=== PATIENT | female | born 1965 | race Caucasian/White ===

== ENCOUNTER → 2021-08-27 | Outpatient (CLI) | payer BC ==
[2021-08-27 09:57] LABS: BASO # 0.1 10^3/uL (0.0-0.2); BASO % 1.7 % (0.0-1.0); EOS # 0.3 10^3/uL (0.0-0.5); EOS % 3.6 % (0.0-3.0); HEMATOCRIT 40.9 % (36.0-47.0); HEMOGLOBIN 13.4 g/dl (12.0-15.5); LYMPH # 2.7 10^3/uL (1.5-5.0); LYMPH % 32.2 % (24.0-44.0); MEAN CORPUSCULAR HEMOGLOBIN 29.7 pg (27.0-33.0); MEAN CORPUSCULAR HGB CONC 32.8 g/dl (32.0-36.5); MEAN CORPUSCULAR VOLUME 90.7 fl (80.0-96.0); MONO # 0.8 10^3/uL (0.0-0.8); MONO % 8.9 % (2.0-8.0); NEUTROPHILS # 4.5 10^3/uL (1.5-8.5); NEUTROPHILS % 53.4 % (36.0-66.0); PLATELET COUNT, AUTOMATED 269 10^3/uL (150-450); RED BLOOD COUNT 4.51 10^6/uL (4.00-5.40); WHITE BLOOD COUNT 8.4 10^3/uL (4.0-10.0)
[2021-08-27 10:21] LABS: ALBUMIN 3.7 GM/DL (3.2-5.2); ALT/SGPT 18 U/L (12-78); BILIRUBIN,TOTAL 0.3 MG/DL (0.2-1.0); BLOOD UREA NITROGEN 13 MG/DL (7-18); CALCIUM LEVEL 9.2 MG/DL (8.5-10.1); CARBON DIOXIDE LEVEL 32 MEQ/L (21-32); CHLORIDE LEVEL 108 MEQ/L (98-107); CHOLESTEROL LEVEL 233 MG/DL (<200); CREATININE FOR GFR 0.67 MG/DL (0.55-1.30); GLOMERULAR FILTRATION RATE > 60.0 (>51); GLUCOSE, FASTING 85 MG/DL (70-100); HDL CHOLESTEROL 64 MG/DL (>40); LDL CHOLESTEROL 149 MG/DL (<100); NON-HDL-C 169 MG/DL; POTASSIUM SERUM 4.9 MEQ/L (3.5-5.1); SODIUM LEVEL 143 MEQ/L (136-145); TOTAL PROTEIN 6.9 GM/DL (6.4-8.2); TRIGLYCERIDES LEVEL 98 MG/DL (<150)
== END ==
LOC: M LAB 08:39
PROVIDERS: ATTEND Nurse Practitioner Family
DX: Z00.00 Encounter for general adult medical examination without abnormal findings (principal)

== ENCOUNTER → 2021-11-20 | Outpatient (CLI) | payer BC | LOC: M LABSMTC 11:13 | PROVIDERS: ATTEND Anesthesiology | DX: Z01.818 Encounter for other preprocedural examination (principal); Z11.52 Encounter for screening for COVID-19 ==

== ENCOUNTER 2021-11-24 10:39 | Day surgery (SDC) | payer BC ==
[~2021-11-24] VITALS: Ht 162.6 cm; Wt 49.8 kg
[~2021-11-24 10:39] MED LIST: NS 1,000 ML IV ONE
[2021-11-24] MEDS ORDERED: OXYC-517 PO (10:59)
[2021-11-24] MEDS ORDERED: fentaNYL 100 MCG/2 ML INJECTION As Ordered ONE (11:22)
[2021-11-24] MEDS ORDERED: propofoL 200 MG/20 ML VIAL As Ordered ONE (11:37)
[2021-11-24] MEDS ORDERED: EMLA CREAM 5GM TUBE (LIDOCAINE/PRILOCAINE) TOP ONE (13:00)
[2021-11-24] MEDS ORDERED: KETOROLAC 30 MG/ML 1ML VIAL IV ONE (13:00)
[2021-11-24 13:35] VITALS: BP 150/80
== END 2021-11-24 13:38 | disposition home or self-care (01) ==
LOC: M OPP 10:39
PROVIDERS: ATTEND Surgery
DX: K62.4 Stenosis of anus and rectum (principal); C21.0 Malignant neoplasm of anus, unspecified; R19.4 Change in bowel habit; K62.5 Hemorrhage of anus and rectum; K21.00 Gastro-esophageal reflux disease with esophagitis, without bleeding; K31.89 Other diseases of stomach and duodenum; R10.13 Epigastric pain; Z91.013 Allergy to seafood
CPT/HCPCS: 43239; 45380; 88305; J1885; J3010

== ENCOUNTER → 2021-12-13 | Outpatient (CLI) | payer BC ==
[~2021-12-13] MED LIST changes: -NS 1,000 ML IV ONE; +OXYC-517 PO
== END ==
LOC: M ONCR 15:08
PROVIDERS: ATTEND General Practice
DX: C21.0 Malignant neoplasm of anus, unspecified (principal); Z87.891 Personal history of nicotine dependence; Z91.013 Allergy to seafood; Z79.891 Long term (current) use of opiate analgesic

== ENCOUNTER 2021-12-20 13:54 | Outpatient (RCR) | payer BC | END 2021-12-25 | LOC: M ONCR 13:54 | PROVIDERS: ATTEND General Practice | DX: C21.0 Malignant neoplasm of anus, unspecified (principal) ==

== ENCOUNTER 2021-12-26 11:04 | Outpatient (RCR) | payer BC ==
[2021-12-27] MEDS ORDERED: OXYC-517 PO (11:05)
[2022-01-02] MEDS ORDERED: CVS50CAP PO (11:23)
[2022-01-17] MEDS ORDERED: OXYC-517 PO ×2 (16:02→18:44)
== END 2022-01-25 ==
LOC: M ONCR 11:04
PROVIDERS: ATTEND General Practice
DX: C21.0 Malignant neoplasm of anus, unspecified (principal)

== ENCOUNTER → 2022-01-12 | Outpatient (CLI) | payer BC ==
[~2022-01-12] MED LIST changes: +CVS50CAP PO; +LIDOCAINE 1% MDV 20ML VIAL As Ordered ONE; +MIDAZOLAM INJ 2MG/2ML VIAL (J2250 PER 1MG) As Ordered ONE; +NS 1,000 ML IV SCH; +ceFAZolin 2 GM/D5W 50 ML IV BAG (J0690 PER 500MG) As Ordered ONE; +ceFAZolin SOD 2 GM in IV 1 EA IV ONE; +diphenhydrAMINE 50MG/ML VIAL (J1200) As Ordered ONE; +fentaNYL 100 MCG/2 ML INJECTION As Ordered ONE
[2022-01-12 16:52] VITALS: BP 119/67
== END ==
LOC: M IRPRO 13:09
PROVIDERS: ATTEND Specialist
DX: C21.0 Malignant neoplasm of anus, unspecified (principal)
CPT/HCPCS: 36561; 99152; 99153; C1769; C1788; C1894; J0690; J1200; J1642; J1644; J2250; J3010

== ENCOUNTER → 2022-01-16 | Outpatient (CLI) | payer BC ==
[~2022-01-16] MED LIST changes: -LIDOCAINE 1% MDV 20ML VIAL As Ordered ONE; -MIDAZOLAM INJ 2MG/2ML VIAL (J2250 PER 1MG) As Ordered ONE; -NS 1,000 ML IV SCH; -ceFAZolin 2 GM/D5W 50 ML IV BAG (J0690 PER 500MG) As Ordered ONE; -ceFAZolin SOD 2 GM in IV 1 EA IV ONE; -diphenhydrAMINE 50MG/ML VIAL (J1200) As Ordered ONE; -fentaNYL 100 MCG/2 ML INJECTION As Ordered ONE
== END ==
LOC: M PLARAD 12:24
PROVIDERS: ATTEND General Practice
DX: C21.0 Malignant neoplasm of anus, unspecified (principal)
CPT/HCPCS: 78815; A9552

== ENCOUNTER → 2022-01-31 | Outpatient (CLI) | payer BC ==
[~2022-01-31] MED LIST changes: +ONDA-84 PO; +ONDA4TAB6 PO; +PROC10TA5 PO
== END ==
LOC: M IRPOV 12:36
DX: Z00.00 Encounter for general adult medical examination without abnormal findings (principal)

== ENCOUNTER → 2022-02-24 | Outpatient (RCR) | payer SELFPAY, BC ==
[~2022-02-24] MED LIST changes: +LEVO1TAB39 PO; +LIDO1CRE2 TOP
== END ==
LOC: M ONCR 02-08 14:02
PROVIDERS: ATTEND General Practice
DX: C21.0 Malignant neoplasm of anus, unspecified (principal)

== ENCOUNTER 2022-02-28 12:54 | Outpatient (CLI) | payer BC ==
[~2022-02-28] VITALS: Ht 160 cm; Wt 43.6 kg
[2022-02-28 13:00] VITALS: BP 102/69
[2022-02-28] MEDS ORDERED: KCL 20MEQ in NS 1000ML 1,000 ML IV SCH (13:30)
[2022-02-28] MEDS ORDERED: dexameTHASONE 20MG/5ML VIAL (J1100 PER 1MG) IV ONE (13:50)
[2022-02-28 16:00] VITALS: BP 93/58
[2022-03-03] MEDS ORDERED: HYDR4TAB PO (14:58)
== END 2022-02-28 16:00 | disposition home or self-care (01) ==
LOC: M INFU 12:54
PROVIDERS: ATTEND Specialist
DX: C21.0 Malignant neoplasm of anus, unspecified (principal)
CPT/HCPCS: 36415; 80053; 85025; 85049; 85055; 96365; 96366; 96375; G0463; J1100

== ENCOUNTER → 2022-03-24 14:15 | Outpatient (RCR) | payer BC, SELFPAY ==
[2022-03-23 15:30] VITALS: BP 102/58
[~2022-03-24 14:15] MED LIST changes: +DICY20TA20 PO; +HYDR4TAB PO; +LIDO2SOL17 TOP; +NS 1,000 ML IV ONE; +OXYC-404 PO; +OXYC10TA3 PO; +PERC10TA26 PO; +POTA-151 PO
== END | disposition home or self-care (01) ==
LOC: M ONCR 02-27 13:48 → M ONCM 03-23 14:45 → M ONCR 14:15
PROVIDERS: ATTEND General Practice
DX: C21.0 Malignant neoplasm of anus, unspecified (principal)
CPT/HCPCS: 77336; 77386; J1100

== ENCOUNTER 2022-03-28 11:31 | Inpatient (IN) | payer BC, SELFPAY ==
[~2022-03-28] VITALS: Ht 162.6 cm; Wt 42.8 kg
[2022-03-28] MEDS ORDERED: HYDR4TAB PO (13:47)
[2022-03-28 15:08] LABS: HEMATOCRIT 26.3 % (36.0-47.0); HEMOGLOBIN 9.1 g/dl (12.0-15.5); MEAN CORPUSCULAR HEMOGLOBIN 29.7 pg (27.0-33.0); MEAN CORPUSCULAR HGB CONC 34.6 g/dl (32.0-36.5); MEAN CORPUSCULAR VOLUME 85.9 fl (80.0-96.0); RED BLOOD COUNT 3.06 10^6/uL (4.00-5.40); WHITE BLOOD COUNT 3.2 10^3/uL (4.0-10.0)
[2022-03-28 15:52] LABS: PLATELET COUNT, AUTOMATED 23 10^3/uL (150-450)
[2022-03-28 16:04] LABS: CK-MB VALUE MASS < 1.0 NG/ML (<3.6); CPK CREATINE PHOSPHOKINASE 15 U/L (26-192); MB/CK RELATIVE INDEX 6.67 (< OR =4)
[2022-03-28 16:13] LABS: ALBUMIN 1.8 GM/DL (3.2-5.2); ALT/SGPT 12 U/L (12-78); BILIRUBIN,DIRECT 0.2 MG/DL (0.0-0.2); BILIRUBIN,TOTAL 0.4 MG/DL (0.2-1.0); BLOOD UREA NITROGEN 8 MG/DL (7-18); CALCIUM LEVEL 7.6 MG/DL (8.5-10.1); CARBON DIOXIDE LEVEL 23 MEQ/L (21-32); CHLORIDE LEVEL 89 MEQ/L (98-107); CREATININE FOR GFR 0.23 MG/DL (0.55-1.30); GLOMERULAR FILTRATION RATE > 60.0 (>51); GLUCOSE, FASTING 97 MG/DL (70-100); POTASSIUM SERUM 3.2 MEQ/L (3.5-5.1); SODIUM LEVEL 127 MEQ/L (136-145); THYROID STIMULATING HORMONE 0.457 uIU/ML (0.358-3.740); TOTAL PROTEIN 5.2 GM/DL (6.4-8.2)
[2022-03-28] MEDS ORDERED: POTASSIUM CHLORIDE 10MEQ SR TABLET PO ONE ×2 (16:55→20:50)
[2022-03-28] MEDS ORDERED: NS 1,000 ML IV ONE (17:05)
[2022-03-28] MEDS ORDERED: LOPERAMIDE 2 MG CAPLET PO ONE (17:05)
[2022-03-28] MEDS ORDERED: PANTOPRAZOLE 40MG VIAL IV ONE (18:15)
[2022-03-28] MEDS ORDERED: oxyCODONE 5MG TAB PO PRN (18:40)
[2022-03-28] MEDS ORDERED: LIDOCAINE 5% (LIDODERM) PATCH TD ONE (18:40)
[2022-03-28 18:44] LABS: RSV AMPLIFICATION NEGATIVE (NEGATIVE)
[2022-03-28 18:45] LABS: CK-MB VALUE MASS < 1.0 NG/ML (<3.6); CPK CREATINE PHOSPHOKINASE 24 U/L (26-192); MB/CK RELATIVE INDEX 4.17 (< OR =4)
[2022-03-28] MEDS ORDERED: OXYC10TA3 PO (18:47)
[2022-03-28] MEDS ORDERED: ONDA4TAB6 PO (18:47)
[2022-03-28] MEDS ORDERED: PROC10TA5 PO (18:47)
[2022-03-28] MEDS ORDERED: HOME MED LIST COMPLETE! XX SCH (18:50)
[2022-03-28] MEDS ORDERED: LR 1,000 ML IV SCH (18:50)
[2022-03-28 19:36] LABS: BASO % 0.3 % (0.0-1.0); EOS % 0.6 % (0.0-3.0); LYMPH # 0.2 10^3/uL (1.5-5.0); LYMPH % 6.8 % (24.0-44.0); MONO # 0.8 10^3/uL (0.0-0.8); MONO % 25.9 % (2.0-8.0); NEUTROPHILS # 2.1 10^3/uL (1.5-8.5); NEUTROPHILS % 65.2 % (36.0-66.0)
[2022-03-28] MEDS: MORPHINE 4 MG/ML 1ML VIAL/SYRINGE IV PRN (19:56)
[2022-03-28] MEDS ORDERED: ISOVUE-370 76% 100ML VIAL As Ordered ONE (20:19)
[2022-03-28] MEDS: GASTROGRAFIN SOLUTION 30ML PO SCH ×2 (20:36→21:49)
[2022-03-28 20:53] LABS: MAGNESIUM LEVEL 1.8 MG/DL (1.8-2.4)
[2022-03-28] MEDS: ACETAMINOPHEN 500 MG TAB PO SCH (21:47)
[2022-03-28 22:02] LABS: INR 1.18; PROTHROMBIN TIME 15.2 SECONDS (12.5-14.5)
[2022-03-28 22:03] LABS: PARTIAL THROMBOPLASTIN TIME 38.9 SECONDS (24.8-34.2)
[2022-03-28 22:05] LABS: D-DIMER QUANT 1958.11 ng/ml (<500)
[2022-03-28 22:30] VITALS: BP 120/70
[2022-03-28] MEDS: SUCRALFATE 1 GM TAB PO SCH (23:04)
[2022-03-29] VITALS (19 sets, daily range): BP systolic 103–126; BP diastolic 57–84
[2022-03-29] MEDS: MORPHINE 4 MG/ML 1ML VIAL/SYRINGE IV PRN ×6 (00:29→23:27)
[2022-03-29] MEDS: ACETAMINOPHEN 500 MG TAB PO SCH ×4 (00:29→18:40)
[2022-03-29] MEDS ORDERED: MORPHINE 2 MG/ML 1ML VIAL IV ONE (04:00)
[2022-03-29] MEDS ORDERED: VANICREAM MOISTURIZING SKIN CREAM 113GM TUBE TOP PRN (04:00)
[2022-03-29] MEDS ORDERED: ACETAMINOPHEN 650 MG IV ONE ×2 (05:00)
[2022-03-29 06:35] LABS: HEMOGLOBIN 8.2 g/dl (12.0-15.5); LYMPH # 0.2 10^3/uL (1.5-5.0); LYMPH % 6.8 % (24.0-44.0); MEAN CORPUSCULAR HEMOGLOBIN 28.3 pg (27.0-33.0); MEAN CORPUSCULAR HGB CONC 34.2 g/dl (32.0-36.5); MEAN CORPUSCULAR VOLUME 82.8 fl (80.0-96.0); MONO # 0.8 10^3/uL (0.0-0.8); MONO % 25.3 % (2.0-8.0); NEUTROPHILS % 63.7 % (36.0-66.0); PLATELET COUNT, AUTOMATED 51 10^3/uL (150-450); WHITE BLOOD COUNT 3.1 10^3/uL (4.0-10.0)
[2022-03-29 07:09] LABS: BLOOD UREA NITROGEN 5 MG/DL (7-18); CALCIUM LEVEL 7.9 MG/DL (8.5-10.1); CARBON DIOXIDE LEVEL 23 MEQ/L (21-32); CHLORIDE LEVEL 96 MEQ/L (98-107); CREATININE FOR GFR 0.16 MG/DL (0.55-1.30); GLOMERULAR FILTRATION RATE > 60.0 (>51); GLUCOSE, FASTING 84 MG/DL (70-100); MAGNESIUM LEVEL 1.6 MG/DL (1.8-2.4); POTASSIUM SERUM 3.4 MEQ/L (3.5-5.1); SODIUM LEVEL 129 MEQ/L (136-145)
[2022-03-29] MEDS: SUCRALFATE 1 GM TAB PO SCH ×5 (08:54→21:52)
[2022-03-29] MEDS: PANTOPRAZOLE 40MG VIAL IV SCH ×2 (08:55→21:54)
[2022-03-29] MEDS: oxyCODONE 5MG TAB PO PRN ×3 (09:43→21:53)
[2022-03-29] MEDS: MAG SULF 1GM/100ML (MAG RUN) 1 GM in IV 1 EA IV SCH ×2 (13:26→14:46)
[2022-03-29] MEDS: POTASSIUM CHLORIDE 10MEQ SR TABLET PO SCH ×3 (13:27→21:52)
[2022-03-29 14:43] LABS: HEMATOCRIT 28.5 % (36.0-47.0); HEMOGLOBIN 9.5 g/dl (12.0-15.5); MEAN CORPUSCULAR HGB CONC 33.3 g/dl (32.0-36.5); MEAN CORPUSCULAR VOLUME 84.1 fl (80.0-96.0); RED BLOOD COUNT 3.39 10^6/uL (4.00-5.40); WHITE BLOOD COUNT 3.2 10^3/uL (4.0-10.0)
[2022-03-29 14:51] LABS: PLATELET COUNT, AUTOMATED 50 10^3/uL (150-450)
[2022-03-29] MEDS ORDERED: PIPERACILLIN/TAZOBACTAM SOD 3.375 GM in D5W MINI-BAG PLUS 50 ML IV SCH (16:00)
[2022-03-29] MEDS ORDERED: ACETAMINOPHEN 325 MG/10.15 ML UDC PO PRN ×2 (20:15→20:25)
[2022-03-29] MEDS: LOPERAMIDE 2 MG CAPLET PO PRN (21:53)
[2022-03-29] MEDS: PIPERACILLIN/TAZOBACTAM SOD 3.375 GM in D5W MINI-BAG PLUS 50 ML IV SCH (21:54)
[2022-03-29] MEDS ORDERED: POTASSIUM CHLORIDE 10% LIQ 20 MEQ/15 ML UDC PO ONE (22:15)
[2022-03-29] MEDS: KCL 10MEQ/100ML SWI (KRUN) 10 MEQ in IV 1 EA IV SCH (23:01)
[2022-03-29 23:23] LABS: HEMATOCRIT 31.7 % (36.0-47.0); HEMOGLOBIN 11.2 g/dl (12.0-15.5); MEAN CORPUSCULAR HGB CONC 35.3 g/dl (32.0-36.5); MEAN CORPUSCULAR VOLUME 82.1 fl (80.0-96.0); RED BLOOD COUNT 3.86 10^6/uL (4.00-5.40)
[2022-03-30] VITALS (9 sets, daily range): BP systolic 100–126; BP diastolic 58–83
[2022-03-30] MEDS: KCL 10MEQ/100ML SWI (KRUN) 10 MEQ in IV 1 EA IV SCH (00:07)
[2022-03-30 00:14] LABS: PLATELET COUNT, AUTOMATED 45 10^3/uL (150-450)
[2022-03-30] MEDS: LOPERAMIDE 2 MG CAPLET PO PRN ×3 (00:53→18:38)
[2022-03-30] MEDS: oxyCODONE 5MG TAB PO PRN ×3 (01:55→11:44)
[2022-03-30] MEDS: MORPHINE 4 MG/ML 1ML VIAL/SYRINGE IV PRN ×5 (02:43→22:35)
[2022-03-30] MEDS: PIPERACILLIN/TAZOBACTAM SOD 3.375 GM in D5W MINI-BAG PLUS 50 ML IV SCH ×4 (02:49→21:47)
[2022-03-30] MEDS ORDERED: LIDOCAINE 4% CREAM 5GM (LMX4) TOP PRN (03:25)
[2022-03-30 08:07] LABS: BASO % 0.6 % (0.0-1.0); EOS % 0.3 % (0.0-3.0); HEMATOCRIT 35.8 % (36.0-47.0); HEMOGLOBIN 12.2 g/dl (12.0-15.5); LYMPH # 0.2 10^3/uL (1.5-5.0); LYMPH % 5.5 % (24.0-44.0); MEAN CORPUSCULAR HEMOGLOBIN 28.4 pg (27.0-33.0); MEAN CORPUSCULAR HGB CONC 34.1 g/dl (32.0-36.5); MEAN CORPUSCULAR VOLUME 83.4 fl (80.0-96.0); MONO # 0.6 10^3/uL (0.0-0.8); MONO % 20.5 % (2.0-8.0); NEUTROPHILS % 64.3 % (36.0-66.0); RED BLOOD COUNT 4.29 10^6/uL (4.00-5.40); WHITE BLOOD COUNT 3.1 10^3/uL (4.0-10.0)
[2022-03-30 08:11] LABS: PLATELET COUNT, AUTOMATED 47 10^3/uL (150-450)
[2022-03-30 08:57] LABS: ALBUMIN 1.9 GM/DL (3.2-5.2); ALT/SGPT 13 U/L (12-78); BILIRUBIN,DIRECT 0.4 MG/DL (0.0-0.2); BILIRUBIN,TOTAL 0.7 MG/DL (0.2-1.0); BLOOD UREA NITROGEN 6 MG/DL (7-18); CALCIUM LEVEL 7.7 MG/DL (8.5-10.1); CARBON DIOXIDE LEVEL 25 MEQ/L (21-32); CHLORIDE LEVEL 98 MEQ/L (98-107); CREATININE FOR GFR 0.36 MG/DL (0.55-1.30); GLOMERULAR FILTRATION RATE > 60.0 (>51); GLUCOSE, FASTING 112 MG/DL (70-100); MAGNESIUM LEVEL 1.9 MG/DL (1.8-2.4); POTASSIUM SERUM 3.4 MEQ/L (3.5-5.1); SODIUM LEVEL 131 MEQ/L (136-145); TOTAL PROTEIN 5.1 GM/DL (6.4-8.2)
[2022-03-30] MEDS: SUCRALFATE 1 GM TAB PO SCH ×4 (09:00→21:00)
[2022-03-30] MEDS: PANTOPRAZOLE 40MG VIAL IV SCH ×2 (09:17→21:47)
[2022-03-30] MEDS: LIDOCAINE 4% CREAM 5GM (LMX4) TOP SCH ×3 (12:15→21:00)
[2022-03-30] MEDS ORDERED: POTASSIUM CHLORIDE 10MEQ SR TABLET PO ONE (13:00)
[2022-03-30] MEDS ORDERED: LIDOCAINE 2% 100MG/5ML SDV (FOR ANES.) As Ordered ONE (14:29)
[2022-03-30] MEDS ORDERED: propofoL 200 MG/20 ML VIAL As Ordered ONE (14:29)
[2022-03-30] MEDS ORDERED: fentaNYL 100 MCG/2 ML INJECTION As Ordered ONE (14:29)
[2022-03-30] MEDS ORDERED: HYDROMORPHONE HCL 0.5 MG/ 0.5 ML SYRINGE (J1170 PER 1) IV PRN (15:55)
[2022-03-30] MEDS ORDERED: MORPHINE 4 MG/ML 1ML VIAL/SYRINGE IV PRN (16:35)
[2022-03-30 17:00] LABS: BASO % 0.6 % (0.0-1.0); EOS % 0.3 % (0.0-3.0); HEMATOCRIT 32.7 % (36.0-47.0); HEMOGLOBIN 11.3 g/dl (12.0-15.5); LYMPH # 0.2 10^3/uL (1.5-5.0); LYMPH % 7.2 % (24.0-44.0); MEAN CORPUSCULAR HEMOGLOBIN 28.9 pg (27.0-33.0); MEAN CORPUSCULAR HGB CONC 34.6 g/dl (32.0-36.5); MEAN CORPUSCULAR VOLUME 83.6 fl (80.0-96.0); MONO # 0.7 10^3/uL (0.0-0.8); MONO % 23.1 % (2.0-8.0); NEUTROPHILS # 1.9 10^3/uL (1.5-8.5); NEUTROPHILS % 59.1 % (36.0-66.0); RED BLOOD COUNT 3.91 10^6/uL (4.00-5.40); WHITE BLOOD COUNT 3.2 10^3/uL (4.0-10.0)
[2022-03-30 17:05] LABS: PLATELET COUNT, AUTOMATED 48 10^3/uL (150-450)
[2022-03-30 17:28] LABS: PLTBLUE- EDTA FREE CALC 41 K/mm3 (172-450); PLTBLUE- EDTA FREE MACHINE 37 10^3/uL (172-450)
[2022-03-30] MEDS ORDERED: POTASSIUM CHLORIDE 10% LIQ 20 MEQ/15 ML UDC PO ONE (18:15)
[2022-03-30] MEDS ORDERED: MORPHINE 2 MG/ML 1ML VIAL IV ONE (18:35)
[2022-03-30 22:05] LABS: BASO % 0.8 % (0.0-1.0); EOS % 0.3 % (0.0-3.0); HEMATOCRIT 32.3 % (36.0-47.0); HEMOGLOBIN 11.3 g/dl (12.0-15.5); LYMPH # 0.2 10^3/uL (1.5-5.0); LYMPH % 5.8 % (24.0-44.0); MEAN CORPUSCULAR HEMOGLOBIN 29.1 pg (27.0-33.0); MEAN CORPUSCULAR VOLUME 83.2 fl (80.0-96.0); MONO % 25.5 % (2.0-8.0); NEUTROPHILS # 2.3 10^3/uL (1.5-8.5); NEUTROPHILS % 59.6 % (36.0-66.0); RED BLOOD COUNT 3.88 10^6/uL (4.00-5.40); WHITE BLOOD COUNT 3.8 10^3/uL (4.0-10.0)
[2022-03-30 22:06] LABS: PLATELET COUNT, AUTOMATED 45 10^3/uL (150-450)
== END 2022-03-30 22:55 | disposition short-term general hospital (02) | DRG 249 ==
LOC: M ED 11:31 → M ED INP 18:13 → ENRESERV 20:52 → M PCU 22:20
PROVIDERS: ADMIT Student in an Organized Health Care Education/Training Program; ATTEND Internal Medicine
PROC: 30233R1 Transfusion of Nonautologous Platelets into Peripheral Vein, Percutaneous Approach (ICD-10-PCS; 2022-03-28)
PROC: 30233N1 Transfusion of Nonautologous Red Blood Cells into Peripheral Vein, Percutaneous Approach (ICD-10-PCS; 2022-03-29)
PROC: 0DJ08ZZ Inspection of Upper Intestinal Tract, Via Natural or Artificial Opening Endoscopic (ICD-10-PCS; principal; 2022-03-30 14:00)
DX: A09 Infectious gastroenteritis and colitis, unspecified (principal); D61.810 Antineoplastic chemotherapy induced pancytopenia; E87.1 Hypo-osmolality and hyponatremia; E83.42 Hypomagnesemia; D62 Acute posthemorrhagic anemia; K52.1 Toxic gastroenteritis and colitis; C21.0 Malignant neoplasm of anus, unspecified; K21.9 Gastro-esophageal reflux disease without esophagitis; T45.1X5A Adverse effect of antineoplastic and immunosuppressive drugs, initial encounter; E87.6 Hypokalemia; R74.01 Elevation of levels of liver transaminase levels; M19.90 Unspecified osteoarthritis, unspecified site; K31.89 Other diseases of stomach and duodenum; Z92.21 Personal history of antineoplastic chemotherapy; Z92.3 Personal history of irradiation; Z87.891 Personal history of nicotine dependence; Z79.899 Other long term (current) drug therapy; Z79.891 Long term (current) use of opiate analgesic; Z91.013 Allergy to seafood

== ENCOUNTER → 2022-03-28 | Outpatient (CLI) | payer BC, SELFPAY ==
[~2022-03-28] VITALS: Ht 154.9 cm; Wt 41.4 kg
[~2022-03-28] MED LIST changes: -NS 1,000 ML IV ONE; -OXYC-404 PO
[2022-03-28 10:41] VITALS: BP 109/73
== END ==
LOC: M PAL 10:13
PROVIDERS: ATTEND Nurse Practitioner Adult Health
DX: C21.0 Malignant neoplasm of anus, unspecified (principal); G89.3 Neoplasm related pain (acute) (chronic); Z79.891 Long term (current) use of opiate analgesic; Z79.899 Other long term (current) drug therapy; Z51.5 Encounter for palliative care; Z92.21 Personal history of antineoplastic chemotherapy; Z92.3 Personal history of irradiation

== ENCOUNTER → 2022-04-11 | Outpatient (CLI) | payer BC, SELFPAY ==
[~2022-04-11] VITALS: Ht 162.6 cm; Wt 40.9 kg
[~2022-04-11] MED LIST changes: +OXYC-404 PO
[2022-04-11 09:32] VITALS: BP 101/69
== END ==
LOC: M PAL 09:17
PROVIDERS: ATTEND Nurse Practitioner Adult Health
DX: C44.520 Squamous cell carcinoma of anal skin (principal); R19.7 Diarrhea, unspecified; D61.818 Other pancytopenia; G89.3 Neoplasm related pain (acute) (chronic); K21.9 Gastro-esophageal reflux disease without esophagitis; R15.9 Full incontinence of feces; R77.0 Abnormality of albumin; R60.9 Edema, unspecified; Z51.5 Encounter for palliative care; Z92.3 Personal history of irradiation; Z92.21 Personal history of antineoplastic chemotherapy; Z87.891 Personal history of nicotine dependence; Z91.013 Allergy to seafood; Z79.899 Other long term (current) drug therapy; Z79.891 Long term (current) use of opiate analgesic

== ENCOUNTER → 2022-04-27 | Outpatient (CLI) | payer BC | LOC: M ONCR 14:44 | PROVIDERS: ATTEND General Practice | DX: C21.0 Malignant neoplasm of anus, unspecified (principal); K64.9 Unspecified hemorrhoids; L58.9 Radiodermatitis, unspecified; Z92.21 Personal history of antineoplastic chemotherapy; Z92.3 Personal history of irradiation ==

== ENCOUNTER → 2022-05-18 | Outpatient (CLI) | payer BC, SELFPAY ==
[~2022-05-18] VITALS: Ht 162.6 cm; Wt 41.8 kg
[2022-05-18 11:10] VITALS: BP 106/73
== END ==
LOC: M PAL 10:59
PROVIDERS: ATTEND Nurse Practitioner Adult Health
DX: C21.0 Malignant neoplasm of anus, unspecified (principal); G89.3 Neoplasm related pain (acute) (chronic); K21.9 Gastro-esophageal reflux disease without esophagitis; Z79.891 Long term (current) use of opiate analgesic; Z79.899 Other long term (current) drug therapy; Z51.5 Encounter for palliative care; Z92.21 Personal history of antineoplastic chemotherapy; Z93.3 Colostomy status; Z91.013 Allergy to seafood; Z87.891 Personal history of nicotine dependence

== ENCOUNTER → 2022-06-08 | Outpatient (CLI) | payer BC, SELFPAY ==
[~2022-06-08] VITALS: Ht 162.6 cm; Wt 42.0 kg
[~2022-06-08] MED LIST changes: +OXYC10TA12 PO; +REGL5TAB2 PO; +ROLA1CHW2 PO
[2022-06-08 11:25] VITALS: BP 102/71
== END ==
LOC: M PAL 11:19
PROVIDERS: ATTEND Nurse Practitioner Adult Health
DX: C21.0 Malignant neoplasm of anus, unspecified (principal); Z92.21 Personal history of antineoplastic chemotherapy; Z51.5 Encounter for palliative care; R53.83 Other fatigue; G89.3 Neoplasm related pain (acute) (chronic); R14.0 Abdominal distension (gaseous); R14.3 Flatulence; Z93.3 Colostomy status; Z79.891 Long term (current) use of opiate analgesic; Z79.899 Other long term (current) drug therapy; K21.9 Gastro-esophageal reflux disease without esophagitis; Z87.891 Personal history of nicotine dependence

== ENCOUNTER → 2022-06-13 | Outpatient (CLI) | payer BC, SELFPAY | LOC: M ONCM 08:02 | PROVIDERS: ATTEND Dietitian, Registered | DX: Z71.3 Dietary counseling and surveillance (principal); C21.0 Malignant neoplasm of anus, unspecified; Z68.1 Body mass index [BMI] 19.9 or less, adult; Z91.013 Allergy to seafood; Z92.21 Personal history of antineoplastic chemotherapy; Z92.3 Personal history of irradiation ==

== ENCOUNTER → 2022-06-16 | Outpatient (CLI) | payer BC, SELFPAY ==
[~2022-06-16] MED LIST changes: +GASTROGRAFIN SOLUTION 30ML As Ordered ONE; +ISOVUE-370 76% 100ML VIAL As Ordered ONE
[2022-06-16 14:40] LABS: ALBUMIN 3.4 G/DL (3.2-5.2); ALKALINE PHOSPHATASE 115 U/L (46-116); ALT/SGPT < 9 U/L (7.0-40); AST/SGOT 17 U/L (<34); BILIRUBIN,TOTAL 0.2 MG/DL (0.3-1.2); BLOOD UREA NITROGEN 9 MG/DL (9-23); CARBON DIOXIDE LEVEL 30 MMOL/L (20-31); CHLORIDE LEVEL 100 MMOL/L (98-107); CREATININE FOR GFR 0.53 MG/DL (0.55-1.30); GLOMERULAR FILTRATION RATE > 60.0 (>51); GLUCOSE, FASTING 84 MG/DL (60-100); SODIUM LEVEL 136 MMOL/L (136-145); TOTAL PROTEIN 6.2 G/DL (5.7-8.2)
== END ==
LOC: M RAD 12:56
PROVIDERS: ATTEND General Practice
DX: C21.0 Malignant neoplasm of anus, unspecified (principal)

== ENCOUNTER → 2022-06-23 | Outpatient (CLI) | payer BC ==
[~2022-06-23] MED LIST changes: -GASTROGRAFIN SOLUTION 30ML As Ordered ONE; -ISOVUE-370 76% 100ML VIAL As Ordered ONE; +METO10TA2 PO
[2022-06-23 16:03] LABS: BASO # 0.1 10^3/uL (0.0-0.2); EOS # 0.2 10^3/uL (0.0-0.5); HEMATOCRIT 38.9 % (36.0-47.0); HEMOGLOBIN 12.8 g/dl (12.0-15.5); LYMPH % 15.1 % (24.0-44.0); MEAN CORPUSCULAR HEMOGLOBIN 31.6 pg (27.0-33.0); MEAN CORPUSCULAR HGB CONC 32.9 g/dl (32.0-36.5); MONO # 0.8 10^3/uL (0.0-0.8); MONO % 11.7 % (2.0-8.0); NEUTROPHILS # 4.6 10^3/uL (1.5-8.5); NEUTROPHILS % 68.9 % (36.0-66.0); PLATELET COUNT, AUTOMATED 230 10^3/uL (150-450); RED BLOOD COUNT 4.05 10^6/uL (4.00-5.40); WHITE BLOOD COUNT 6.7 10^3/uL (4.0-10.0)
== END ==
LOC: M ONCR 14:05
PROVIDERS: ATTEND General Practice
DX: C21.0 Malignant neoplasm of anus, unspecified (principal); Z92.21 Personal history of antineoplastic chemotherapy; Z92.3 Personal history of irradiation; Z87.891 Personal history of nicotine dependence; Z91.013 Allergy to seafood; Z79.891 Long term (current) use of opiate analgesic
CPT/HCPCS: 85025; G0463

== ENCOUNTER → 2022-06-27 | Outpatient (CLI) | payer BC, SELFPAY ==
[~2022-06-27] VITALS: Ht 162.6 cm; Wt 41.3 kg
[~2022-06-27] MED LIST changes: +LIDO15SO4 TOP; -LIDO2SOL17 TOP
[2022-06-27 15:38] VITALS: BP 112/75
== END ==
LOC: M PAL 15:34
PROVIDERS: ATTEND Nurse Practitioner Adult Health
DX: C21.0 Malignant neoplasm of anus, unspecified (principal); Z92.21 Personal history of antineoplastic chemotherapy; Z51.5 Encounter for palliative care; G89.3 Neoplasm related pain (acute) (chronic); E44.1 Mild protein-calorie malnutrition; R53.83 Other fatigue; Z93.3 Colostomy status; Z79.891 Long term (current) use of opiate analgesic; Z79.899 Other long term (current) drug therapy; K21.9 Gastro-esophageal reflux disease without esophagitis; Z87.891 Personal history of nicotine dependence; Z91.013 Allergy to seafood; Z98.51 Tubal ligation status

== ENCOUNTER → 2022-07-04 | Outpatient (POV) | payer BC ==
[~2022-07-04] VITALS: Ht 162.6 cm; Wt 41.3 kg
[2022-07-04 09:15] VITALS: BP 124/77
== END ==
LOC: M IRPOV 08:59
PROVIDERS: ATTEND Radiology Diagnostic Radiology
DX: Z45.2 Encounter for adjustment and management of vascular access device (principal); Z91.030 Bee allergy status

== ENCOUNTER → 2022-07-10 | Outpatient (CLI) | payer BC | LOC: M LABSMTC 11:28 | PROVIDERS: ATTEND Anesthesiology | DX: Z01.812 Encounter for preprocedural laboratory examination (principal); Z11.52 Encounter for screening for COVID-19 ==

== ENCOUNTER → 2022-07-13 | Outpatient (CLI) | payer BC ==
[~2022-07-13] VITALS: Ht 162.6 cm; Wt 41.0 kg
[~2022-07-13] MED LIST changes: +LIDOCAINE 1% MDV 20ML VIAL As Ordered ONE; +MIDAZOLAM INJ 2MG/2ML VIAL As Ordered ONE; +NS 1,000 ML IV SCH; -OXYC-404 PO; +OXYC20TA64 PO; +ceFAZolin 2 GM/D5W 50 ML IV BAG As Ordered ONE; +ceFAZolin SOD 2 GM in IV 1 EA IV ONE; +diphenhydrAMINE 50MG/ML VIAL As Ordered ONE; +fentaNYL 100 MCG/2 ML INJECTION As Ordered ONE
[2022-07-13 12:30] VITALS: BP 123/74
== END ==
LOC: M IRPRO 08:29
PROVIDERS: ATTEND Radiology Diagnostic Radiology
DX: Z45.2 Encounter for adjustment and management of vascular access device (principal); C21.0 Malignant neoplasm of anus, unspecified
CPT/HCPCS: 36590; 99152; J0690; J1200; J1644; J2250; J3010

== ENCOUNTER → 2022-07-27 | Outpatient (CLI) | payer BC, SELFPAY ==
[~2022-07-27] VITALS: Ht 162.6 cm; Wt 41.0 kg
[~2022-07-27] MED LIST changes: +HEAL1TAB6 PO; -LIDOCAINE 1% MDV 20ML VIAL As Ordered ONE; -MIDAZOLAM INJ 2MG/2ML VIAL As Ordered ONE; -NS 1,000 ML IV SCH; -ceFAZolin 2 GM/D5W 50 ML IV BAG As Ordered ONE; -ceFAZolin SOD 2 GM in IV 1 EA IV ONE; -diphenhydrAMINE 50MG/ML VIAL As Ordered ONE; -fentaNYL 100 MCG/2 ML INJECTION As Ordered ONE
[2022-07-27 10:17] VITALS: BP 122/78
== END ==
LOC: M PAL 10:12
PROVIDERS: ATTEND Nurse Practitioner Adult Health
DX: C21.0 Malignant neoplasm of anus, unspecified (principal); Z51.5 Encounter for palliative care; Z92.21 Personal history of antineoplastic chemotherapy; G89.3 Neoplasm related pain (acute) (chronic); E44.1 Mild protein-calorie malnutrition; R53.83 Other fatigue; Z93.3 Colostomy status; Z79.891 Long term (current) use of opiate analgesic; Z79.899 Other long term (current) drug therapy; K21.9 Gastro-esophageal reflux disease without esophagitis; Z87.891 Personal history of nicotine dependence; Z91.013 Allergy to seafood; Z98.51 Tubal ligation status

== ENCOUNTER → 2022-09-20 | Outpatient (CLI) | payer BC, SELFPAY ==
[~2022-09-20] VITALS: Ht 162.6 cm; Wt 45.3 kg
[~2022-09-20] MED LIST changes: +CVS-161 PO; +GABA-1171 PO; +LIDO15SO TOP; -LIDO15SO4 TOP; +VITMTA PO
[2022-09-20 13:09] VITALS: BP 97/58
== END ==
LOC: M PAL 13:04
PROVIDERS: ATTEND Nurse Practitioner Adult Health
DX: C44.520 Squamous cell carcinoma of anal skin (principal); G89.3 Neoplasm related pain (acute) (chronic); K21.9 Gastro-esophageal reflux disease without esophagitis; R15.9 Full incontinence of feces; Z51.5 Encounter for palliative care; Z92.3 Personal history of irradiation; Z92.21 Personal history of antineoplastic chemotherapy; Z87.891 Personal history of nicotine dependence; Z91.013 Allergy to seafood; Z79.899 Other long term (current) drug therapy; Z79.891 Long term (current) use of opiate analgesic

== ENCOUNTER → 2022-09-20 | Outpatient (CLI) | payer BC | LOC: M ONCR 13:07 | PROVIDERS: ATTEND General Practice | DX: C21.0 Malignant neoplasm of anus, unspecified (principal); K64.9 Unspecified hemorrhoids; Z87.891 Personal history of nicotine dependence; Z91.013 Allergy to seafood; Z92.21 Personal history of antineoplastic chemotherapy; Z92.3 Personal history of irradiation ==

== ENCOUNTER → 2023-01-23 | Outpatient (CLI) | payer BC, SELFPAY ==
[~2023-01-23] MED LIST changes: +DICY1CAP8 PO
== END ==
LOC: M ONCR 13:55
PROVIDERS: ATTEND General Practice
DX: Z08 Encounter for follow-up examination after completed treatment for malignant neoplasm (principal); Z85.048 Personal history of other malignant neoplasm of rectum, rectosigmoid junction, and anus; K64.9 Unspecified hemorrhoids; R15.9 Full incontinence of feces; R15.2 Fecal urgency; Z87.891 Personal history of nicotine dependence; Z91.013 Allergy to seafood; Z92.21 Personal history of antineoplastic chemotherapy; Z92.3 Personal history of irradiation

== ENCOUNTER → 2024-02-20 | Outpatient (CLI) | payer BC ==
[~2024-02-20] MED LIST changes: +GASTROGRAFIN SOLUTION 30ML ONE; +ISOVUE-370 76% 100ML VIAL ONE; -LIDO15SO TOP; +LIDO15SO8 TOP; +ONDA-282 PO; -ONDA4TAB6 PO
== END ==
LOC: M PLAIMG 09:08
PROVIDERS: ATTEND Surgery
DX: C21.0 Malignant neoplasm of anus, unspecified (principal)